=== PATIENT | male | born 1995 | race Caucasian/White ===

== ENCOUNTER → 2017-03-11 | Outpatient (CLI) | payer SELFPAY ==
[~2017-03-11] MED LIST: ALBUTEROL0.09 MG/A2 IH; KEFLEX500 MG PO; MEDROL DOSEPAK4 MG PO; TEGRETOL200 MG PO; ZITHROMAX Z PA250 MG PO
[2017-03-11 15:01] LABS: HEMATOCRIT 49.1 % (42.0-52.0); HEMOGLOBIN 16.4 g/dl (14.0-18.0); MEAN CELL VOLUME 86.4 fl (80.0-94.0); MEAN CORPUSCULAR HGB 28.9 pg (27.0-31.0); MEAN CORPUSCULAR HGB CONC 33.4 g/dl (33.0-37.0); RED BLOOD COUNT 5.68 10*6/uL (4.50-5.90); WHITE BLOOD COUNT 8.5 10*3/uL (4.8-10.8)
[2017-03-11 15:17] LABS: ALBUMIN 4.1 gm/dl (3.1-4.5); ALKALINE PHOSPHATASE 98 U/L (45-117); BUN 14 mg/dl (7-24); CHLORIDE 103 mmol/L (98-107); POTASSIUM 3.9 mmol/L (3.5-5.1); SGOT/AST 32 IU/L (3-35); SGPT/ALT 52 U/L (12-78); SODIUM 141 mmol/L (136-145); TOTAL PROTEIN 7.9 gm/dL (6.4-8.2)
[2017-03-12 07:06] LABS: HEPATITIS B SURFACE AG Negative (Negative); HIV 1+2 AB + HIV1 P24 AG Non Reactive (Non Reactive)
[2017-03-12 10:38] LABS: HEPATITIS C VIRUS ANTIBODY 6.2 s/co (0.0-0.9)
== END | disposition home or self-care (01) ==
LOC: LAB 14:19
PROVIDERS: Family Medicine
DX: Z11.4 Encounter for screening for human immunodeficiency virus [HIV] (principal); Z72.51 High risk heterosexual behavior

== ENCOUNTER → 2017-03-14 | Outpatient (CLI) | payer SELFPAY ==
[2017-03-15 20:07] LABS: HEPATITIS C QUANTITATION HCV Not Detected IU/mL (.)
== END | disposition home or self-care (01) ==
LOC: LAB 13:55
PROVIDERS: Family Medicine
DX: B19.20 Unspecified viral hepatitis C without hepatic coma (principal)

== ENCOUNTER 2023-12-18 09:43 | Emergency (ER) | payer SELFPAY ==
[2023-12-18] MEDS ORDERED: methylPREDNISolone sod succ 125 MG VIAL IM ONE (10:20)
[2023-12-18] MEDS ORDERED: Albuterol Sulf/Ipratropium 3 ML VIAL NEB ONE (10:20)
[2023-12-18] MEDS ORDERED: AZITHROMYCIN 250 MG TAB PO ONE (10:45)
[2023-12-18] MEDS ORDERED: PREDNISONE50 MG PO (11:09)
[2023-12-18] MEDS ORDERED: AVPAK AZITHROM250 M1 PO (11:09)
[2023-12-18] MEDS ORDERED: VENT7GM INH (11:09)
== END 2023-12-18 11:31 | disposition home or self-care (01) ==
LOC: ED 09:43
DX: J45.901 Unspecified asthma with (acute) exacerbation (principal)